=== PATIENT | female | born 1975 | race Caucasian/White ===

== ENCOUNTER 2017-03-17 20:11 | Emergency (ER) | payer MEDICAID, OTHER, SELFPAY ==
[2017-03-17 20:23] VITALS: BMI 37.4
--- NOTE | 2017-03-17 21:24 | ED PDOC ---
Arrival/HPI - General Chief Complaint: Back Pain Time Seen by Provider: 03/17/17 20:51 - History of Present Illness Narrative History of Present Illness (Text): 03/17/17 21:24 Kathleen Matt is a 41 year old female who presents to the Emergency department complaining of right flank pain. Patient states she has been experiencing right flank pain radiating to her right abdomen since yesterday, worsening today. Patient denies any fever, chills, chest pain, shortness of breath, nausea, vomiting, diarrhea, urinary symptoms, neck pain, headache, dizziness, or any other complaints. Time/Duration: Other (few days) Symptom Onset: Gradual Symptom Course: Worsening Activities at Onset: Rest, Light Context: Home Past Medical History - Provider Review Nursing Documentation Reviewed: Yes - Past History Past History: No Previous - Infectious Disease Hx of Infectious Diseases: None - Tetanus Immunization Tetanus Immunization: Unknown - Past Medical History Past Medical History: No Previous - Psychiatric Hx Depression: No Hx Emotional Abuse: No Hx Physical Abuse: No Hx Substance Use: No - Past Surgical History Past Surgical History: Non-Contributing - Surgical History Hx Section: Yes - Anesthesia Hx Anesthesia: No - Suicidal Assessment Feels Threatened In Home Enviroment: No Family/Social History - Physician Review Nursing Documentation Reviewed: Yes Family/Social History: Unknown Family HX Smoking Status: Never Smoked Hx Alcohol Use: No Hx Substance Use: No Hx Substance Use Treatment: No Allergies/Home Meds Allergies/Adverse Reactions: Allergies No Known Allergies Allergy (Verified 03/21/14 03:17) Review of Systems - Physician Review All systems were reviewed & negative as marked: Yes - Review of Systems Constitutional: Normal. absent: Fevers Eyes: Normal ENT: Normal Respiratory: Normal. absent: SOB, Cough Cardiovascular: Normal. absent: Chest Pain Gastrointestinal: Abdominal Pain Genitourinary Female: Normal. absent: Dysuria, Frequency, Hematuria, Urine Output Changes Musculoskeletal: Back Pain Skin: Normal. absent: Rash Neurological: Normal. absent: Headache, Dizziness Endocrine: Normal Hemo/Lymphatic: Normal Psychiatric: Normal Physical Exam Vital Signs Reviewed: Yes Vital Signs Temp Pulse Resp BP Pulse Ox 03/18/17 01:06 16 98 03/18/17 00:43 98.1 F 82 18 119/70 100 03/17/17 20:11 98.7 F 86 18 116/80 99 Temperature: Afebrile Blood Pressure: Normal Pulse: Regular Respiratory Rate: Normal Appearance: Positive for: Well-Appearing, Non-Toxic, Comfortable Pain Distress: None Mental Status: Positive for: Alert and Oriented X 3 - Systems Exam Head: Present: Atraumatic, Normocephalic Pupils: Present: PERRL Extroacular Muscles: Present: EOMI Conjunctiva: Present: Normal Mouth: Present: Moist Mucous Membranes Neck: Present: Normal Range of Motion Respiratory/Chest: Present: Clear to Auscultation, Good Air Exchange. No: Respiratory Distress, Accessory Muscle Use Cardiovascular: Present: Regular Rate and Rhythm, Normal S1, S2. No: Murmurs Abdomen: Present: Normal Bowel Sounds. No: Tenderness, Distention, Peritoneal Signs Back: Present: Normal Inspection Upper Extremity: Present: Normal Inspection. No: Cyanosis, Edema Lower Extremity: Present: Normal Inspection. No: Edema Neurological: Present: GCS=15, CN II-XII Intact, Speech Normal Skin: Present: Warm, Dry, Normal Color. No: Rashes Psychiatric: Present: Alert, Oriented x 3, Normal Insight, Normal Concentration Medical Decision Making ED Course and Treatment: 03/17/17 21:24 Impression: 41 year old female complaining of right flank pain radiating to her abdomen for the past few days, worse today. Differential Diagnosis included but are not limited to: UTI Plan: -- CT Abdomen and Pelvis -- Labs -- UA -- Reassess and disposition Prior Visits: Notes and results from previous visits were reviewed. On 09/16/2014, pt was seen in the Emergency department for left flank pain and epigastric discomfort. Pt was d/c home. Progress Notes: 03/17/17 23:45 Reviewed radiology, CT Abdomen and shows: Fatty infiltration of an enlarged liver. No obstructive uropathy. Normal appendix. 03/18/17 00:35 On reevaluation the patient feels better and is in no acute distress. I have discussed the results and plan with the patient, who expresses understanding. Patient given the opportunity to ask question, all questions were answered and there is agreement with the plan to discharge the patient home. Patient is stable for discharge. Patient was instructed to follow up with physician/clinic in 1-2 days or return if symptoms persist/worsen or new concerning symptoms arise. - Lab Interpretations Lab Results: 03/17/17 22:20 03/17/17 22:20 Lab Results 03/17/17 22:20: Sodium 141, Potassium 4.4, Chloride 105, Carbon Dioxide 25, Anion Gap 15, BUN 14, Creatinine 0.6, Est GFR ( Amer) > 60, Est GFR (Non- Af Amer) > 60, Random Glucose 112 H, Calcium 9.4, Total Bilirubin 0.5, AST 39, ALT 44, Alkaline Phosphatase 70, Total Protein 7.5, Albumin 4.3, Globulin 3.2, Albumin/Globulin Ratio 1.3 03/17/17 22:20: WBC 7.0 D, RBC 4.11, Hgb 13.0, Hct 37.7, MCV 91.7, MCH 31.6, MCHC 34.5, RDW 12.9, Plt Count 228, MPV 10.6, Gran % 58.4, Lymph % (Auto) 27.2, Lipscomb % (Auto) 5.6, Eos % (Auto) 8.5 H, Baso % (Auto) 0.3, Gran # 4.07, Lymph # 1.9, Lipscomb # 0.4, Eos # 0.6, Baso # 0.02 03/17/17 21:25: Urine Color Yellow, Urine Appearance Sl cloudy, Urine pH 6.0, Ur Specific Webb 1.025, Urine Protein Negative, Urine Glucose (UA) Negative, Urine Ketones Negative, Urine Blood Small H, Urine Nitrate Negative, Urine Bilirubin Negative, Urine Urobilinogen 1.0 H, Ur Leukocyte Esterase Moderate H, Urine RBC 2 - 5, Urine WBC 10 - 15, Ur Epithelial Cells 3 - 4, Urine Bacteria Few, Urine Other Uyeast, Urine HCG, Qual Negative I have reviewed the lab results: Yes - RAD Interpretation Narrative RAD Interpretations (Text): CT Abdomen and shows: Lower thorax: The bilateral lung bases are clear. ABDOMEN: Liver: The liver is enlarged, and demonstrates diffuse fatty infiltration. Gallbladder and bile ducts: No acute finding. No calcified stones. No intra- extrahepatic biliary ductal dilation. Pancreas: Limited evaluation secondary to the lack of intravenous contrast. Spleen: No acute findings. Adrenals: No acute findings. Kidneys and ureters: No obstructing stones. No hydronephrosis. PELVIS: Bladder: No acute findings. Reproductive: No acute findings. Appendix: The appendix is of normal-caliber (series 2, image 1.9; series 601, image 71). ABDOMEN and PELVIS: Stomach and bowel: No acute findings. Peritoneum: No acute findings. Lymph nodes: Limited evaluation without intravenous contrast. Vasculature: No aortic aneurysm. Bones: No acute fracture. IMPRESSION: Fatty infiltration of an enlarged liver. No obstructive uropathy. Normal appendix. Radiology Orders: 03/17/17 22:05 ABD & PELVIS W/O PO OR IV CONT [CT] Stat Mucker Cofferdam: Radiologist - Medication Orders Current Medication Orders: Discontinued Medications Ceftriaxone Sodium (Rocephin 1 Gram Ivpb) 1 gm in 100 mls @ 200 mls/hr IVPB STAT STA PRN Reason: Protocol Stop: 03/17/17 23:56 Last Admin: 03/17/17 23:47 Dose: 200 mls/hr Ketorolac Tromethamine (Toradol) 30 mg IVP ONCE ONE Stop: 03/17/17 23:07 Last Admin: 03/17/17 23:22 Dose: 30 mg - Scribe Statement The provider has reviewed the documentation as recorded by the Flor Quiroz All medical record entries made by the Flor were at my direction and personally dictated by me. I have reviewed the chart and agree that the record accurately reflects my personal performance of the history, physical exam, medical decision making, and the department course for this patient. I have also personally directed, reviewed, and agree with the discharge instructions and disposition. Disposition/Present on Arrival - Present on Arrival Any Indicators Present on Arrival: No History of DVT/PE: No History of Uncontrolled Diabetes: No Urinary Catheter: No History of Decub. Ulcer: No History Surgical Site Infection Following: None - Disposition Have Diagnosis and Disposition been Completed?: Yes Diagnosis: Urinary tract infection Disposition: HOME/ ROUTINE Disposition Time: 00:35 Condition: GOOD Discharge Instructions (ExitCare): Urinary Tract Infection in Women (ED) Prescriptions: Cephalexin [Keflex] 500 mg PO BID #14 capsule Referrals: Rancho Mac [Primary Care Provider] - Follow up with primary Forms: [employer] ([place]er)
[2017-03-17 21:48] LABS: URINE BILIRUBIN NEGATIVE (NEGATIVE); URINE BLOOD SMALL (NEGATIVE); URINE GLUCOSE (UA) NEGATIVE (NEGATIVE); URINE KETONE NEGATIVE (NEGATIVE); URINE LEUKOCYTE ESTERASE MODERATE Leu/uL (NEGATIVE); URINE PROTEIN NEGATIVE mg/dL (<30 mg/dL)
[2017-03-17 22:04] LABS: URINE APPEARANCE SL CLOUDY (CLEAR); URINE COLOR YELLOW (YELLOW)
[2017-03-17 22:06] LABS: URINE BACTERIA FEW (NEG)
[2017-03-17 22:28] LABS: BASO # 0.02 K/mm3 (0.0-2.0); BASO % 0.3 % (0.0-3.0); EOS # 0.6 (0.0-0.7); EOS % 8.5 % (1.5-5.0); GRAN # 4.07 (1.4-6.5); GRAN % 58.4 % (50.0-68.0); HEMATOCRIT 37.7 % (36.0-48.0); LYMPH # 1.9 (1.2-3.4); LYMPH % 27.2 % (22.0-35.0); MEAN CELL VOLUME 91.7 fl (80.0-105.0); MEAN CORPUSCULAR HEMOGLOBIN 31.6 pg (25.0-35.0); MEAN CORPUSCULAR HGB CONC 34.5 g/dl (31.0-37.0); MEAN PLATELET VOLUME 10.6 fl (7.0-11.0); MONO # 0.4 (0.1-0.6); MONO % 5.6 % (1.0-6.0); RED CELL DISTRIBUTION WIDTH 12.9 % (11.5-14.5)
[2017-03-17 22:40] LABS: ALB/GLOB RATIO 1.3 (1.1-1.8); ALKALINE PHOSPHATASE 70 U/L (38-133); ALT/SGPT 44 U/L (7-56); AST/SGOT 39 U/L (15-39); BILIRUBIN,TOTAL 0.5 mg/dL (0.2-1.3); BLOOD UREA NITROGEN 14 mg/dL (7-21); CALCIUM 9.4 mg/dL (8.4-10.5); CARBON DIOXIDE 25 mmol/L (21-33); GFR AFRICAN-AMERICAN > 60; GLUCOSE,RANDOM 112 mg/dL (70-110); POTASSIUM 4.4 mmol/L (3.6-5.0); SODIUM 141 mmol/L (132-148); TOTAL PROTEIN 7.5 g/dL (5.8-8.3)
[2017-03-17 22:45] LABS: CHLORIDE 105 mmol/L (98-107)
--- NOTE | 2017-03-17 23:13 | CT ---
EXAM: CT Abdomen and Pelvis Without Intravenous Contrast CLINICAL HISTORY: 41 years old, female; Pain; Abdominal pain; Flank; Right; Prior surgery; Surgery type: ; Additional info: Rt flank pain TECHNIQUE: Axial computed tomography images of the abdomen and pelvis without intravenous contrast. All CT scans at this facility use one or more dose reduction techniques, viz.: automated exposure control; ma/kV adjustment per patient size (including targeted exams where dose is matched to indication; i.e. head); or iterative reconstruction technique. Coronal and sagittal reformatted images were created and reviewed. COMPARISON: No relevant prior studies available. FINDINGS: Lower thorax: The bilateral lung bases are clear. ABDOMEN: Liver: The liver is enlarged, and demonstrates diffuse fatty infiltration. Gallbladder and bile ducts: No acute finding. No calcified stones. No intra-extrahepatic biliary ductal dilation. Pancreas: Limited evaluation secondary to the lack of intravenous contrast. Spleen: No acute findings. Adrenals: No acute findings. Kidneys and ureters: No obstructing stones. No hydronephrosis. PELVIS: Bladder: No acute findings. Reproductive: No acute findings. Appendix: The appendix is of normal-caliber (series 2, image 1.9; series 601, image 71). ABDOMEN and PELVIS: Stomach and bowel: No acute findings. Peritoneum: No acute findings. Lymph nodes: Limited evaluation without intravenous contrast. Vasculature: No aortic aneurysm. Bones: No acute fracture. IMPRESSION: Fatty infiltration of an enlarged liver. No obstructive uropathy. Normal appendix.
[2017-03-17] MEDS ORDERED: cefTRIAXone 1 gm 1 GM/100 ML BAG IVPB STA (23:27)
[2017-03-18 00:44] VITALS: BP 119/70; PULSE 82; TEMP 98.1
[2017-03-18 01:08] VITALS: RESP 16; O2SAT 98
== END 2017-03-18 01:08 | disposition home or self-care (01) ==
LOC: ED 20:11
DX: N39.0 Urinary tract infection, site not specified (principal)
CPT/HCPCS: 74176; 80053; 81001; 84703; 85025; 87086; 96374; 99283; J0696; J1885

== ENCOUNTER 2017-10-15 18:25 | Emergency (ER) | payer MEDICAID, OTHER ==
[2017-10-15 18:26] VITALS: BMI 37.4
--- NOTE | 2017-10-15 19:00 | ED PDOC ---
Arrival/HPI - General Chief Complaint: Female Genitourinary Time Seen by Provider: 10/15/17 18:52 Historian: Patient - History of Present Illness Narrative History of Present Illness (Text): 10/15/17 18:59 41yo female who present with complaint of dysuria, hematuria, lower back pain, suprapubic abdominal pain urinary frequency since early this morning. States symptoms started this morning and pain started this afternoon. denies fever, chills, nausea, vomiting, any other complaint. Past Medical History - Provider Review Nursing Documentation Reviewed: Yes - Past History Past History: No Previous - Infectious Disease Hx of Infectious Diseases: None - Tetanus Immunization Tetanus Immunization: Unknown - Reproductive Menopause: No - Past Medical History Past Medical History: No Previous - Psychiatric Hx Depression: No Hx Emotional Abuse: No Hx Physical Abuse: No Hx Substance Use: No - Past Surgical History Past Surgical History: Non-Contributing - Surgical History Hx Section: Yes - Anesthesia Hx Anesthesia: No - Suicidal Assessment Feels Threatened In Home Enviroment: No Family/Social History - Physician Review Nursing Documentation Reviewed: Yes Family/Social History: Unknown Family HX Smoking Status: Never Smoked Hx Alcohol Use: No Hx Substance Use: No Hx Substance Use Treatment: No Allergies/Home Meds Allergies/Adverse Reactions: Allergies No Known Allergies Allergy (Verified 10/15/17 18:34) Review of Systems - Physician Review All systems were reviewed & negative as marked: Yes - Review of Systems Constitutional: Normal Eyes: Normal ENT: Normal Respiratory: Normal Cardiovascular: Normal Gastrointestinal: Normal Genitourinary Female: Dysuria, Frequency, Hematuria. absent: Vaginal Bleeding, Vaginal Discharge Musculoskeletal: Normal Skin: Normal Neurological: Normal Endocrine: Normal Hemo/Lymphatic: Normal Psychiatric: Normal Physical Exam Vital Signs Reviewed: Yes Vital Signs Temp Pulse Resp BP Pulse Ox 10/15/17 18:43 98.2 F 110 H 24 132/68 98 10/15/17 18:31 99.1 F 102 H 18 128/92 H 98 Temperature: Afebrile Blood Pressure: Normal Pulse: Regular Respiratory Rate: Normal Appearance: Positive for: Well-Appearing, Non-Toxic, Comfortable Pain Distress: None Mental Status: Positive for: Alert and Oriented X 3 - Systems Exam Head: Present: Atraumatic, Normocephalic Pupils: Present: PERRL Extroacular Muscles: Present: EOMI Conjunctiva: Present: Normal Mouth: Present: Moist Mucous Membranes Neck: Present: Normal Range of Motion Respiratory/Chest: Present: Clear to Auscultation, Good Air Exchange. No: Respiratory Distress, Accessory Muscle Use Cardiovascular: Present: Regular Rate and Rhythm, Normal S1, S2. No: Murmurs Abdomen: Present: Tenderness (Suprapubic tenderness), Normal Bowel Sounds. No: Distention, Peritoneal Signs, Rebound, Guarding, McBurney's Point Tender, Rovsing's Sign Present Back: Present: Normal Inspection. No: CVA Tenderness Upper Extremity: Present: Normal Inspection. No: Cyanosis, Edema Lower Extremity: Present: Normal Inspection. No: Edema Neurological: Present: GCS=15, CN II-XII Intact, Speech Normal Skin: Present: Warm, Dry, Normal Color. No: Rashes Psychiatric: Present: Alert, Oriented x 3, Normal Insight, Normal Concentration Medical Decision Making ED Course and Treatment: 10/15/17 20:19 PT in ED for stated history. She was afebrile and had no CVAT. She have UTI and treated with Macrobid. Result was DW the pt and she referred to her PMD. - Lab Interpretations Lab Results: Lab Results 10/15/17 19:05: Urine Color Light yellow, Urine Appearance Cloudy, Urine pH 6.0 , Ur Specific [place] >= 1.030, Urine Protein 100 H, Urine Glucose (UA) Negative , Urine Ketones Negative, Urine Blood Large H, Urine Nitrate Positive H, Urine Bilirubin Negative, Urine Urobilinogen 0.2, Ur Leukocyte Esterase Small H, Urine RBC 20 - 25, Urine WBC 25 - 30, Ur Epithelial Cells 6 - 8, Urine Bacteria Mod, Urine HCG, Qual Negative - Medication Orders Current Medication Orders: Nitrofurantoin Macrocrystals (Macrobid) 100 mg PO ONCE STA PRN Reason: Protocol Stop: 10/15/17 20:17 Disposition/Present on Arrival - Present on Arrival Any Indicators Present on Arrival: No History of DVT/PE: No History of Uncontrolled Diabetes: No Urinary Catheter: No History of Decub. Ulcer: No History Surgical Site Infection Following: None - Disposition Have Diagnosis and Disposition been Completed?: Yes Diagnosis: UTI (urinary tract infection) Disposition: HOME/ ROUTINE Disposition Time: 20:20 Patient Plan: Discharge Condition: STABLE Discharge Instructions (ExitCare): Urinary Tract Infection, Adult (DC) Additional Instructions: follow up with your doctor Drink plenty of fluid and rest Return to ED for any new or worsening symptoms Prescriptions: Nitrofurantoin Macrocrystals [Macrobid] 100 mg PO BID #14 cap Phenazopyridine [Phenazopyridine HCl] 200 mg PO TID #6 tab Referrals: [facility]o Mac [Primary Care Provider] - Follow up with primary Forms: [employer] ([place]ian)
[2017-10-15 19:24] LABS: URINE BILIRUBIN NEGATIVE (NEGATIVE); URINE BLOOD LARGE (NEGATIVE); URINE GLUCOSE (UA) NEGATIVE (NEGATIVE); URINE LEUKOCYTE ESTERASE SMALL Leu/uL (NEGATIVE); URINE PROTEIN 100 mg/dL (<30 mg/dL); URINE UROBILINOGEN 0.2 E.U./dL (<1 E.U./dL)
[2017-10-15 19:29] LABS: URINE APPEARANCE CLOUDY (CLEAR); URINE COLOR LIGHT YELLOW (YELLOW)
[2017-10-15 19:51] LABS: URINE RBC 20 - 25 /hpf (0-2); URINE WBC 25 - 30 /hpf (0-6)
[2017-10-15 19:52] LABS: HCG,QUALITATIVE URINE NEGATIVE (NEGATIVE); URINE BACTERIA MOD (NEG)
[2017-10-15 20:58] VITALS: BP 133/88; PULSE 102; RESP 18; TEMP 99.1; O2SAT 99
== END 2017-10-15 21:03 | disposition home or self-care (01) ==
LOC: ED 18:25
DX: N39.0 Urinary tract infection, site not specified (principal)